=== PATIENT | female | born 1980 | race American Indian/Alaskan Native ===

== ENCOUNTER 2018-06-29 10:54 | Emergency (ER) | payer BC, OTHER ==
[2018-06-29 11:08] VITALS: BP 139/91
[2018-06-29] MEDS ORDERED: ZOFRAN IV ONE (11:36)
[2018-06-29] MEDS ORDERED: PEPCID IV ONE (11:36)
[2018-06-29 12:12] LABS: Basophils % (Auto) 0.7 % (0.0-1.8); Eosinophils # (Auto) 0.1 K/mm3 (0.0-0.4); Eosinophils % (Auto) 1.7 % (0.0-4.3); Hematocrit 41.5 % (30.3-42.9); Hemoglobin 14.1 gm/dl (10.1-14.3); Lymphocytes # (Auto) 1.1 K/mm3 (1.2-5.4); Lymphocytes % (Auto) 32.4 % (13.4-35.0); Mean Corpuscular HGB Conc 34 % (30-34); Mean Corpuscular Volume 93 fl (79-97); Monocytes # (Auto) 0.3 K/mm3 (0.0-0.8); Monocytes % (Auto) 9.4 % (0.0-7.3); Platelet Count 237 K/mm3 (140-440); Red Blood Count 4.46 M/mm3 (3.65-5.03); Red Cell Distribution Width 13.9 % (13.2-15.2)
[2018-06-29 12:21] LABS: Alanine Aminotransferase 20 units/L (7-56); Albumin 4.3 g/dL (3.9-5); BUN/Creatinine Ratio 13; Blood Urea Nitrogen 9 mg/dL (7-17); Calcium 8.4 mg/dL (8.4-10.2); Hemolysis Index 7
--- NOTE | 2018-06-29 12:40 | Ultrasound Report ---
ULTRASOUND ABDOMEN LIMITED: TECHNIQUE: Transabdominal ultrasound with color Doppler interrogation. HISTORY: right upper quadrant abdominal pain. COMPARISON: none. FINDINGS: LIVER: Normal. BILIARY SYSTEM: There are multiple large shadowing gallstones measuring up to 2-3 cm in diameter. The gallbladder is partially obscured secondary to the large stones. Gallbladder wall thickness is normal measuring 2 mm. No obvious pericholecystic fluid. The CBD measures 3 mm. PANCREAS: Normal. RIGHT KIDNEY: Normal. PROXIMAL AORTA: Normal. ASCITES: None. IMPRESSION: Cholelithiasis. No obvious findings of acute cholecystitis although much of the gallbladder is obscured by the large gallstones.
--- NOTE | 2018-06-29 13:31 | Emergency Department Report ---
ED Abdominal Pain HPI - General Chief Complaint: GI Bleed Stated Complaint: VOMITING BLOOD Time Seen by Provider: 06/29/18 11:31 Source: patient Mode of arrival: Ambulatory Limitations: No Limitations - History of Present Illness Initial Comments: Patient is a 37-year-old Turkmen female who states for the past 2 weeks she's been having episodes of nausea vomiting. Patient states she'll feel nauseous and started coughing and she'll vomit multiple times. Patient states she sees some streaks of blood in her vomit as well. She denies any diarrhea. Patient was seen here several weeks ago for similar and was diagnosed with a upper respiratory infection. Patient states she has some epigastric discomfort sometimes radiates to her back and some right upper back pain. Patient states pains are a 10 severity at their worst. Patient states these can be colicky. She states there is no change with eating or lying flat. Severity scale (0 -10): 8 - Related Data Previous Rx's Medication Instructions Recorded Last Taken Type Benzonatate [Tessalon Perle] 100 mg PO TID PRN #30 capsule 02/28/18 Unknown Rx Cetirizine HCl [ZyrTEC] 10 mg PO DAILY #30 capsule 02/28/18 Unknown Rx methylPREDNISolone [Medrol] 4 mg PO QAM #1 tab.ds.pk 02/28/18 Unknown Rx Dicyclomine [Bentyl] 20 mg PO QID #10 tablet 06/29/18 Unknown Rx HYDROcodone/ACETAMINOPHEN 1 each PO Q6HR PRN #12 tablet 06/29/18 Unknown Rx [Hydrocodone-Acetamin 5-325 mg] Ibuprofen [Ibu] 600 mg PO Q6HR PRN #20 tablet 06/29/18 Unknown Rx Ondansetron [Zofran Odt] 4 mg PO Q8HR #10 tab.rapdis 06/29/18 Unknown Rx Allergies Allergy/AdvReac Type Severity Reaction Status Date / Time No Known Allergies Allergy Verified 06/29/18 10:56 ED Review of Systems ROS: Stated complaint: VOMITING BLOOD Other details as noted in HPI Comment: All other systems reviewed and negative ED Past Medical Hx - Past Medical History Previous Medical History?: No - Surgical History Past Surgical History?: No - Social History Smoking Status: Never Smoker Substance Use Type: None - Medications Home Medications: Home Medications Medication Instructions Recorded Confirmed Last Taken Type Benzonatate [Tessalon Perle] 100 mg PO TID PRN #30 capsule 02/28/18 Unknown Rx Cetirizine HCl [ZyrTEC] 10 mg PO DAILY #30 capsule 02/28/18 Unknown Rx methylPREDNISolone [Medrol] 4 mg PO QAM #1 tab.ds.pk 02/28/18 Unknown Rx Dicyclomine [Bentyl] 20 mg PO QID #10 tablet 06/29/18 Unknown Rx HYDROcodone/ACETAMINOPHEN 1 each PO Q6HR PRN #12 tablet 06/29/18 Unknown Rx [Hydrocodone-Acetamin 5-325 mg] Ibuprofen [Ibu] 600 mg PO Q6HR PRN #20 tablet 06/29/18 Unknown Rx Ondansetron [Zofran Odt] 4 mg PO Q8HR #10 tab.rapdis 06/29/18 Unknown Rx ED Physical Exam - General Limitations: No Limitations General appearance: alert, in no apparent distress - Head Head exam: Present: atraumatic, normocephalic - Eye Eye exam: Present: normal appearance - ENT ENT exam: Present: mucous membranes moist - Neck Neck exam: Present: normal inspection - Respiratory Respiratory exam: Present: normal lung sounds bilaterally. Absent: respiratory distress, wheezes, rales, rhonchi - Cardiovascular Cardiovascular Exam: Present: regular rate, normal rhythm. Absent: normal heart sounds, systolic murmur, diastolic murmur, rubs, gallop - GI/Abdominal GI/Abdominal exam: Present: soft, tenderness (epigastric (mild)), normal bowel sounds. Absent: distended, guarding, rebound, rigid - Extremities Exam Extremities exam: Present: normal inspection - Back Exam Back exam: Present: normal inspection - Neurological Exam Neurological exam: Present: alert, oriented X3 - Psychiatric Psychiatric exam: Present: normal affect, normal mood - Skin Skin exam: Present: warm, dry, intact, normal color. Absent: rash ED Course Vital Signs 06/29/18 11:06 Temperature 98.6 F Pulse Rate 91 H Respiratory 20 Rate Blood Pressure 139/91 O2 Sat by Pulse 96 Oximetry ED Medical Decision Making - Lab Data Result diagrams: 06/29/18 11:48 06/29/18 11:48 Lab Results 06/29/18 06/29/18 06/29/18 Range/Units 11:48 11:48 11:48 WBC 3.5 L (4.5-11.0) K/mm3 RBC 4.46 (3.65-5.03) M/mm3 Hgb 14.1 (10.1-14.3) gm/dl Hct 41.5 (30.3-42.9) % MCV 93 (79-97) fl MCH 32 (28-32) pg MCHC 34 (30-34) % RDW 13.9 (13.2-15.2) % Plt Count 237 (140-440) K/mm3 Lymph % (Auto) 32.4 (13.4-35.0) % [place] % (Auto) 9.4 H (0.0-7.3) % Eos % (Auto) 1.7 (0.0-4.3) % Baso % (Auto) 0.7 (0.0-1.8) % Lymph # 1.1 L (1.2-5.4) K/mm3 [place] # 0.3 (0.0-0.8) K/mm3 Eos # 0.1 (0.0-0.4) K/mm3 Baso # 0.0 (0.0-0.1) K/mm3 Seg Neutrophils % 55.8 (40.0-70.0) % Seg Neutrophils # 1.9 (1.8-7.7) K/mm3 Sodium 138 (137-145) mmol/L Potassium 3.8 (3.6-5.0) mmol/L Chloride 102.7 (98-107) mmol/L Carbon Dioxide 24 (22-30) mmol/L Anion Gap 15 mmol/L BUN 9 (7-17) mg/dL Creatinine 0.7 (0.7-1.2) mg/dL Estimated GFR > 60 ml/min BUN/Creatinine Ratio 13 % Glucose 104 H (65-100) mg/dL Calcium 8.4 (8.4-10.2) mg/dL Total Bilirubin 0.60 (0.1-1.2) mg/dL AST 17 (5-40) units/L ALT 20 (7-56) units/L Alkaline Phosphatase 78 (35-129) units/L Total Protein 7.0 (6.3-8.2) g/dL Albumin 4.3 (3.9-5) g/dL Albumin/Globulin Ratio 1.6 % Lipase 16 (13-60) units/L HCG, Qual Negative (Negative) - Radiology Data [facility] [address] [place] [address] Ultrasound Report Signed Patient: SULMA PRICE MR#: [id number] 4 : 1980 Acct:[id number] Age/Sex: 37 / F ADM Date: 06/29/18 Loc: ED Attending Dr: Ordering Physician: ALHAJI ADDISON MD Date of Service: 06/29/18 Procedure(s): US abdomen limited Accession Number(s): [id number] cc: ALHAJI ADDISON MD ULTRASOUND ABDOMEN LIMITED: TECHNIQUE: Transabdominal ultrasound with color Doppler interrogation. HISTORY: right upper quadrant abdominal pain. COMPARISON: none. FINDINGS: LIVER: Normal. BILIARY SYSTEM: There are multiple large shadowing gallstones measuring up to 2-3 cm in diameter. The gallbladder is partially obscured secondary to the large stones. Gallbladder wall thickness is normal measuring 2 mm. No obvious pericholecystic fluid. The CBD measures 3 mm. PANCREAS: Normal. RIGHT KIDNEY: Normal. PROXIMAL AORTA: Normal. ASCITES: None. IMPRESSION: Cholelithiasis. No obvious findings of acute cholecystitis although much of the gallbladder is obscured by the large gallstones. Transcribed By: TTR Dictated By: ANATOLY JONES JR, MD Electronically Authenticated By: ANATOLY JONES JR, MD Signed Date/Time: 06/29/18 1236 - Medical Decision Making The patient's ultrasound shows she does have several gallstones. There is no evidence of infection. Patient is given information regarding gall stones and gallbladder dysfunction. Patient be referred to general surgery. Patient's pain is being controlled as well as nausea and emergency department and patient be discharged home. Critical care attestation.: If time is entered above; I have spent that time in minutes in the direct care of this critically ill patient, excluding procedure time. ED Disposition Clinical Impression: Biliary colic, Magi-Kilgore syndrome Disposition: DC-01 TO HOME OR SELFCARE Is pt being admited?: No Does the pt Need Aspirin: No Condition: Stable Instructions: Biliary Colic (ED), Acute Nausea and Vomiting (ED), Low Fat Diet (ED) Referrals: MAEGAN DRAKE MD [Staff Physician] - 3-5 Days Forms: Accompanied Note, Work/School Release Form(ED) Time of Disposition: 13:29
== END 2018-06-29 14:03 | disposition home or self-care (01) ==
LOC: ED 10:54
DX: K80.50 Calculus of bile duct without cholangitis or cholecystitis without obstruction (principal); K22.6 Gastro-esophageal laceration-hemorrhage syndrome
CPT/HCPCS: 36415; 76705; 80053; 83690; 84703; 85025; 96374; 96375; 99284; J2405

== ENCOUNTER 2018-08-10 05:49 | Day surgery (SDC) | payer BC ==
[2018-08-09 13:18] LABS: Basophils % (Auto) 0.7 % (0.0-1.8); Eosinophils # (Auto) 0.1 K/mm3 (0.0-0.4); Eosinophils % (Auto) 1.6 % (0.0-4.3); Hematocrit 43.1 % (30.3-42.9); Hemoglobin 14.8 gm/dl (10.1-14.3); Lymphocytes % (Auto) 30.2 % (13.4-35.0); Mean Corpuscular HGB Conc 34 % (30-34); Mean Corpuscular Volume 93 fl (79-97); Monocytes # (Auto) 0.3 K/mm3 (0.0-0.8); Monocytes % (Auto) 8.6 % (0.0-7.3); Platelet Count 212 K/mm3 (140-440); Red Blood Count 4.65 M/mm3 (3.65-5.03); Red Cell Distribution Width 13.5 % (13.2-15.2)
[2018-08-09 13:41] LABS: Alanine Aminotransferase 27 units/L (7-56); Albumin 4.4 g/dL (3.9-5); BUN/Creatinine Ratio 21; Blood Urea Nitrogen 17 mg/dL (7-17); Calcium 8.8 mg/dL (8.4-10.2); Hemolysis Index 12
[2018-08-10] MEDS ORDERED: ANCEF/STERILE WATER 2 GM/20 ML 2 GM/20 ML SYRINGE IV SCH (06:00)
[2018-08-10] MEDS ORDERED: NEURONTIN PO NR (06:00)
[2018-08-10] MEDS ORDERED: VERSED IV NR (06:00)
[2018-08-10] MEDS ORDERED: LACTATED RINGERS 1,000 ML IV SCH (06:00)
[2018-08-10] MEDS ORDERED: TRANSDERM-SCOP TD NR (06:00)
[2018-08-10] MEDS ORDERED: PEPCID IV NR (06:10)
[2018-08-10] MEDS ORDERED: ZOFRAN ONE (06:10)
[2018-08-10] MEDS ORDERED: PEPCID IV ONE (06:10)
[2018-08-10] MEDS ORDERED: NACL BACTERIOSTATIC INFILTRATI ONE (06:12)
[2018-08-10] MEDS ORDERED: ZOFRAN IV NR (06:12)
[2018-08-10] MEDS ORDERED: MARCAINE 0.5% INFILTRATI ONE (07:14)
[2018-08-10] MEDS ORDERED: MARCAINE-EPI 0.5%-1:200,000 INFILTRATI ONE (07:14)
[2018-08-10] MEDS ORDERED: ZEMURON IV ONE (07:18)
[2018-08-10] MEDS ORDERED: XYLOCAINE MPF 2% ONE (07:18)
[2018-08-10] MEDS ORDERED: QUELICIN ONE (07:18)
[2018-08-10] MEDS ORDERED: SUBLIMAZE ONE (07:18)
[2018-08-10] MEDS ORDERED: DIPRIVAN 10 MG/ML IV ONE (07:19)
[2018-08-10] MEDS ORDERED: ceFAZolin 2 GM in NACL 0.9% 100 ML IV ONE (07:30)
[2018-08-10] MEDS ORDERED: MARCAINE-EPI/PF 0.5%-1:200,000 INFILTRATI ONE (07:55)
[2018-08-10] MEDS ORDERED: DECADRON ONE (08:16)
[2018-08-10] MEDS ORDERED: TORADOL ONE (08:17)
[2018-08-10] MEDS ORDERED: LACTATED RINGERS 1,000 ML ONE (08:33)
--- NOTE | 2018-08-10 08:34 | Discharge Summary ---
Short Stay Discharge Plan Activity: other (observe x 4 hrs then july d/c if stable. ice chips today, cl liq in am, solid low fat diet in 48 hrs. keep dressings dry x 5 days. no lifting over 5 lbs x 2 wks) Diet: other Wound: keep clean and dry Additional Instructions: aleve I po q 6-8 hrs prn for breakthrough pain Follow up with: MAEGAN DRAKE MD [Staff Physician] - 7 Days
--- NOTE | 2018-08-10 08:52 | Operative Report ---
PREOPERATIVE DIAGNOSIS: Gallbladder disease. POSTOPERATIVE DIAGNOSIS: Gallbladder disease. PROCEDURE: Laparoscopic cholecystectomy. SURGEON: Keith Molina MD GAME ENGINEER: Dr. Hernandez. ANESTHESIA: General. ESTIMATED BLOOD LOSS: Minimal. DRAINS: No. COMPLICATIONS: None. DESCRIPTION OF PROCEDURE: The patient was taken to the operating room, prepped and draped in usual sterile fashion. Veress needle was inserted and CO2 insufflation begun. A 5 mm trocar was then inserted and camera inserted. All other trocars were inserted under direct visualization. Gallbladder was then grasped at the fundus and infundibulum and retracted towards the right subphrenic space. Dissection was then carried out along Calot's triangle. The cystic duct and artery were delineated in their entire course. Both were then doubly clipped and transected. Hook electrocautery was used to dissect the gallbladder from the overlying liver bed. Prior to complete removal, the liver bed was inspected for bleeding and noted to be dry. The cystic duct and artery stumps were once again visualized. The clips were noted to be securely in place with no evidence of bleeding or bile leak. Gallbladder was then completely freed and brought through the subxiphoid port. This area was inspected for bleeding and noted to be dry. Subxiphoid trocar was then gently reinserted. All other 5 mm trocars were then removed under direct visualization. No bleeding or oozing noted. Subxiphoid trocar was used to expel the CO2 and the trocar removed. The fascia at this site was closed with a [id number] 0 Vicryl suture. The skin at all port sites were closed with subcuticular 4-0 Vicryl. A 0.5% Marcaine was infiltrated over the port site for postoperative pain relief. The patient tolerated the procedure well and left OR in stable condition. JOB# [id number] JUAN/LIBRADO
[2018-08-10] MEDS ORDERED: DILAUDID IV PRN (08:58)
--- NOTE | 2018-08-10 09:00 | Anesthesia Consultation ---
Anesthesia Consult and Med Hx Date of service: 08/10/18 - Airway Anesthetic Teeth Evaluation: Good ROM Head & Neck: Adequate Mental/Hyoid Distance: Adequate Mallampati Class: Class II Intubation Access Assessment: Probably Good - Pulmonary Exam CTA: Yes - Cardiac Exam Cardiac Exam: RRR - Pre-Operative Health Status ASA Pre-Surgery Classification: ASA2 Proposed Anesthetic Plan: General - Pulmonary Hx Smoking: No Hx Respiratory Symptoms: No - Cardiovascular System Hx Hypertension: No Hx Heart Attack/AMI: No Hx Cardia Arrhythmia: No - Central Nervous System CVA: No Hx Back Pain: Yes (chronic; treated with OTC NSAIDs) Hx Psychiatric Problems: No - Gastrointestinal Hx Gastroesophageal Reflux Disease: No (nausea and vomiting associated with gallstones) - Endocrine Hx Renal Disease: No Hx Liver Disease: No Hx Insulin Dependent Diabetes: No Hx Non-Insulin Dependent Diabetes: No Hx Thyroid Disease: No - Hematic Hx Anemia: No - Other Systems Hx Obesity: Yes - Additional Comments Anesthesia Medical History Comments: No prior GA. No FHx anesthetic complications.
--- NOTE | 2018-08-10 09:01 | Anesthesia Day of Surgery ---
Anesthesia Day of Surgery - Day of Surgery Patient Examined: Yes Patient H&P Reviewed: Yes Patient is NPO: Yes
[2018-08-10] MEDS ORDERED: NORCO 5/325 PO PRN ×2 (09:23→09:24)
[2018-08-10 12:29] VITALS: BP 139/75
--- NOTE | 2018-08-10 12:35 | Post Anesthesia Evaluation ---
- Post Anesthesia Evaluation Patient Participated: Yes Airway Patent: Yes Stable Respiratory Function: Yes Nausea/Vomiting: No Temp > 96.8F: Yes Pain Manageable: Yes Adequeate Hydration: Yes Anesthesia Complications: No
[2018-08-10] MEDS ORDERED: ZOFRAN IV ONE (13:31)
== END 2018-08-10 13:15 | disposition home or self-care (01) ==
LOC: OR 05:49
PROVIDERS: ATTEND Surgery
DX: K80.10 Calculus of gallbladder with chronic cholecystitis without obstruction (principal); K21.9 Gastro-esophageal reflux disease without esophagitis; E66.9 Obesity, unspecified; Z68.33 Body mass index [BMI] 33.0-33.9, adult; Z79.899 Other long term (current) drug therapy; Z98.890 Other specified postprocedural states
CPT/HCPCS: 36415; 47562; 80053; 82150; 84703; 85025; 88304; J0330; J0690; J1100; J1170; J1885; J2250; J2405; J2704; J3010; J7120

== ENCOUNTER 2020-08-26 12:07 | Outpatient (CLI) | payer BC | END 2020-08-26 12:08 | disposition home or self-care (01) | LOC: XRAY 12:07 | PROVIDERS: ATTEND Internal Medicine | DX: M47.896 Other spondylosis, lumbar region (principal) | CPT/HCPCS: 72110 ==

== ENCOUNTER 2020-09-15 12:02 | Emergency (ER) | payer BC ==
[2020-09-15 14:27] VITALS: BP 158/104
--- NOTE | 2020-09-15 15:33 | Emergency Department Report ---
- General Chief Complaint: Dyspnea/Respdistress Stated Complaint: NOT FEELING WELL PUI?: No Time Seen by Provider: 09/15/20 15:17 Source: patient Mode of arrival: Ambulatory Limitations: No Limitations - History of Present Illness Initial Comments: 40-year-old female presents to the ER today with complaints of cough. She states that she has had this cough for 3 weeks. She states that is triggered when she feels like there is a tickle in her throat and states that the cough can be uncontrollable at times. She states that she has been having posttussive emesis secondary to a cough and a headache secondary to the cough. She states that the cough can be productive but sometimes it is nonproductive. She also states that she is feels she is getting a sore throat and getting hoarse secondary to the cough. She did see a primary care doctor couple weeks ago and was prescribed Tessalon Perles and Zyrtec both of which she took and has completed. She states that she noticed mild improvement when she was taking the medication but it came right back. She denies any associated chest pain, shortness of breath, wheezing, fever, chills, rhinorrhea, nasal congestion or sneezing. She states that she does not take any daily medication and has no significant past medical history. She denies tobacco use. MD Complaint: cough, sore throat -: week(s) (3) - Related Data Previous Rx's Medication Instructions Recorded Last Taken Type HYDROcodone/APAP 5-325 [Rin[place] 1 - 2 each PO Q4HR PRN #30 tablet 08/10/18 Unknown Rx 5/325] Amoxicillin/Potassium Clav 1 each PO Q12H #14 tablet 09/15/20 Unknown Rx [Augmentin 500-125 Tablet] Benzonatate [Tessalon Perles] 100 mg PO Q8HR PRN #100 capsule 09/15/20 Unknown Rx Cetirizine HCl [Zyrtec 10mg tab] 10 mg PO DAILY #30 tablet 09/15/20 Unknown Rx predniSONE [Deltasone] 40 mg PO QDAY #10 tab 09/15/20 Unknown Rx Allergies Allergy/AdvReac Type Severity Reaction Status Date / Time No Known Allergies Allergy Verified 08/09/18 13:00 ED Review of Systems ROS: Stated complaint: NOT FEELING WELL Other details as noted in HPI Comment: All other systems reviewed and negative Constitutional: denies: chills, fever Eyes: denies: eye pain, eye discharge, vision change ENT: denies: ear pain, throat pain Respiratory: cough. denies: shortness of breath, SOB with exertion, SOB at rest, stridor, wheezing Cardiovascular: denies: chest pain, palpitations, dyspnea on exertion, edema, syncope, paroxysmal nocturnal dyspnea Gastrointestinal: vomiting (Posttussive). denies: abdominal pain, nausea, diarrhea, constipation, hematemesis, hematochezia Genitourinary: denies: urgency, dysuria, frequency, hematuria, discharge, abnormal menses, dyspareunia Musculoskeletal: denies: back pain, joint swelling, arthralgia, myalgia Skin: denies: rash, lesions, change in color, change in hair/nails, pruritus Neurological: headache (Secondary to cough). denies: weakness, numbness, paresthesias, confusion, abnormal gait, vertigo Psychiatric: denies: anxiety, depression, auditory hallucinations, visual hallucinations, homicidal thoughts, suicidal thoughts Hematological/Lymphatic: denies: easy bleeding, easy bruising, swollen glands ED Past Medical Hx - Past Medical History Previous Medical History?: No Hx Hypertension: No Hx Heart Attack/AMI: No Hx Liver Disease: No Hx Renal Disease: No Hx HIV: No - Surgical History Past Surgical History?: No - Social History Smoking Status: Never Smoker - Medications Home Medications: Home Medications Medication Instructions Recorded Confirmed Last Taken Type HYDROcodone/APAP 5-325 [[place] 1 - 2 each PO Q4HR PRN #30 tablet 08/10/18 Unknown Rx 5/325] Amoxicillin/Potassium Clav 1 each PO Q12H #14 tablet 09/15/20 Unknown Rx [Augmentin 500-125 Tablet] Benzonatate [Tessalon Perles] 100 mg PO Q8HR PRN #100 capsule 09/15/20 Unknown Rx Cetirizine HCl [Zyrtec 10mg tab] 10 mg PO DAILY #30 tablet 09/15/20 Unknown Rx predniSONE [Deltasone] 40 mg PO QDAY #10 tab 09/15/20 Unknown Rx ED Physical Exam - General Limitations: No Limitations General appearance: alert, in no apparent distress - Head Head exam: Present: atraumatic, normocephalic, normal inspection - Eye Eye exam: Present: normal appearance, PERRL, EOMI Pupils: Present: normal accommodation - ENT ENT exam: Present: normal exam, mucous membranes moist, TM's normal bilaterally - Neck Neck exam: Present: normal inspection, full ROM. Absent: meningismus - Respiratory Respiratory exam: Present: normal lung sounds bilaterally. Absent: respiratory distress, wheezes, rales, rhonchi, stridor - Cardiovascular Cardiovascular Exam: Present: regular rate, normal rhythm, normal heart sounds - GI/Abdominal GI/Abdominal exam: Present: soft. Absent: distended, tenderness, guarding, rebound - Back Exam Back exam: Present: normal inspection - Neurological Exam Neurological exam: Present: alert, oriented X3, CN II-XII intact, normal gait - Psychiatric Psychiatric exam: Present: normal affect, normal mood - Skin Skin exam: Present: intact ED Course Vital Signs 09/15/20 14:26 Temperature 98.7 F Pulse Rate 75 Respiratory 20 Rate Blood Pressure 158/104 O2 Sat by Pulse 98 Oximetry ED Medical Decision Making - Radiology Data Radiology results: report reviewed Patient: SULMA PRICE MR#: [id number] 4 : 1980 Acct:[id number] Age/Sex: 40 / F ADM Date: 09/15/20 Loc: ED Attending Dr: Ordering Physician: MORIS RIZO Date of Service: 09/15/20 Procedure(s): XR chest routine 2V Accession Number(s): [id number] cc: MORIS RIZO Fluoro Time In Minutes: CHEST 2 VIEWS INDICATION / CLINICAL INFORMATION: cough. COMPARISON: None available. FINDINGS: SUPPORT DEVICES: None. HEART / MEDIASTINUM: No significant abnormality. LUNGS / PLEURA: No significant pulmonary or pleural abnormality. No pneumothor ax. ADDITIONAL FINDINGS: No significant additional findings. IMPRESSION: No significant abnormality Signer Name: Reinaldo Espinal MD FACR Signed: 09/15/2020 3:36 PM Workstation Name: [id number] Transcribed By: MS Dictated By: Reinaldo Espinal MD Electronically Authenticated By: Reinaldo Espinal MD Signed Date/Time: 09/15/20 153 DD/ 34 TD/TT: Critical care attestation.: If time is entered above; I have spent that time in minutes in the direct care of this critically ill patient, excluding procedure time. ED Disposition Clinical Impression: Sinusitis, Bronchitis, Pharyngitis, Laryngitis Disposition: DC-01 TO HOME OR SELFCARE Is pt being admited?: No Does the pt Need Aspirin: No Condition: Stable Instructions: Chronic Bronchitis (ED), Sinusitis, Adult, [id number], Acute Bronchitis, Adult, Laryngitis, Pharyngitis Additional Instructions: Take the augmentin, the prednisone, the zyrtec and tessalon perles as prescribed. Follow-up with the firearms assembly supervisor and/or leak hunter if your symptoms persist despite taking the medication. Return to the ER if your symptoms changes or worsens in any way. Prescriptions: Amoxicillin/Potassium Clav [Augmentin 500-125 Tablet] 1 each PO Q12H #14 tablet predniSONE [Deltasone] 40 mg PO QDAY #10 tab Benzonatate [Tessalon Perles] 100 mg PO Q8HR PRN #100 capsule PRN Reason: Cough Cetirizine HCl [Zyrtec 10mg tab] 10 mg PO DAILY #30 tablet Referrals: [facility] [Provider Group] - 3-5 Days Forms: Work/School Release Form(ED) Time of Disposition: 16:34
--- NOTE | 2020-09-15 15:40 | XRay Report ---
CHEST 2 VIEWS INDICATION / CLINICAL INFORMATION: cough. COMPARISON: None available. FINDINGS: SUPPORT DEVICES: None. HEART / MEDIASTINUM: No significant abnormality. LUNGS / PLEURA: No significant pulmonary or pleural abnormality. No pneumothorax. ADDITIONAL FINDINGS: No significant additional findings. IMPRESSION: No significant abnormality Signer Name: Reinaldo Espinal MD FACR Signed: 09/15/2020 3:36 PM Workstation Name: [id number]
== END 2020-09-15 18:45 | disposition home or self-care (01) ==
LOC: ED 12:02
DX: J40 Bronchitis, not specified as acute or chronic (principal); J32.9 Chronic sinusitis, unspecified; J02.9 Acute pharyngitis, unspecified; J04.0 Acute laryngitis; Z79.2 Long term (current) use of antibiotics; Z79.899 Other long term (current) drug therapy
CPT/HCPCS: 71046